=== PATIENT | male | born 1970 | race Caucasian/White ===

== ENCOUNTER 2021-01-01 01:29 | Outpatient (CLI) | payer BC | END 2021-01-01 01:30 | disposition critical access hospital (66) | LOC: EMS 01:29 | DX: R00.2 Palpitations (principal); R06.02 Shortness of breath; R07.9 Chest pain, unspecified | CPT/HCPCS: A0425; A0427 ==

== ENCOUNTER 2021-01-01 02:07 | Emergency (ER) | payer BC ==
--- NOTE | 2021-01-01 02:36 | ED Physician Documentation ---
PD HPI CHEST PAIN - Stated complaint Stated Complaint: CP/SOA - Chief complaint Chief Complaint: Cardiac - History obtained from History obtained from: Patient - History of Present Illness Timing - onset: Enter time (0100), Today Timing - onset during: Rest Timing - duration: Minutes (15) Timing - details: Abrupt onset, Now resolved Quality: Pressure, Tightness Location: Left chest Radiation: Left upper extremity Improved by: Other (time) Associated symptoms: Shortness of air, Nausea, Feeling faint / dizzy. No: Diaphoresis, Vomiting, General Weakness, Palpitations, Cough Similar symptoms before: No diagnosis Recently seen: Not recently seen - Additional information Additional information: Previously well 50-year-old male with a family history of coronary disease has been in his usual state of health and this evening while in bed he began to experience some pressure in his left upper chest close to his shoulder and this radiated down into his arm. He relates a throbbing-like sensation associated with this which is having a very difficult time describing. This lasted about 15 minutes left him with a little bit of queasiness and a feeling of near syncope. He told his and she called 911. In route the patient was administered nitroglycerin he arrives without symptoms with the exception of some mild pressure at the shoulder. He reports feeling out of shape over the past 2 to 3 months. Nothing more specific I did ask him about the metric of walking his dog and being short of breath walking up a hill and he and his both stated this does not seem to be anything progressive or significant. Review of Systems Constitutional: denies: Fever Eyes: denies: Decreased vision Ears: denies: Ear pain Nose: denies: Congestion Throat: denies: Sore throat Cardiac: reports: Chest pain / pressure. denies: Palpitations, Pedal edema, Calf pain Respiratory: reports: Dyspnea. denies: Cough, Wheezing GI: reports: Nausea. denies: Abdominal Pain, Vomiting, Constipation, Diarrhea : denies: Dysuria, Frequency Skin: denies: Rash Musculoskeletal: denies: Neck pain, Back pain, Extremity pain Neurologic: denies: Generalized weakness, Focal weakness, Numbness PD PAST MEDICAL HISTORY - Past Medical History Past Medical History: Yes Cardiovascular: Hypertension Respiratory: None Neuro: None Endocrine/Autoimmune: None GI: None : None HEENT: None Psych: None Musculoskeletal: None Derm: None - Past Surgical History Past Surgical History: No - Present Medications Home Medications: Ambulatory Orders Medication Instructions Recorded Confirmed No Known Home Medications 01/01/21 01/01/21 - Allergies Allergies/Adverse Reactions: Allergies Allergy/AdvReac Type Severity Reaction Status Date / Time No Known Drug Allergies Allergy Verified 01/01/21 02:20 - Social History Does the pt smoke?: No Smoking Status: Never smoker Does the pt drink ETOH?: Yes Does the pt have substance abuse?: No - Immunizations Immunizations are current?: Yes - POLST Patient has POLST: No PD ED PE NORMAL - Vitals Vital signs reviewed: Yes (normal ) - General General: Alert and oriented X 3, No acute distress, Well developed/nourished - HEENT HEENT: Atraumatic, PERRL, EOMI - Neck Neck: Supple, no meningeal sign, No bony TTP - Cardiac Cardiac: RRR, No murmur, Other (no chest wall tenderness ) - Respiratory Respiratory: No respiratory distress, Clear bilaterally - Abdomen Abdomen: Soft, Non tender - Back Back: No CVA TTP, No spinal TTP - Derm Derm: Normal color, Warm and dry, No rash - Extremities Extremities: No deformity, No edema - Neuro Neuro: Alert and oriented X 3, dexigraph operator 2-12 intact, No motor deficit, No sensory deficit, Normal speech Eye Opening: Spontaneous Motor: Obeys Commands Verbal: Oriented GCS Score: 15 - Psych Psych: Normal mood, Normal affect Results - Vitals Vitals: Vital Signs - 24 hr 01/01/21 01/01/21 01/01/21 02:16 02:23 02:37 Temperature 36.3 C L Heart Rate 81 65 61 Respiratory 16 16 16 Rate Blood Pressure 121/78 134/79 H O2 Saturation 100 100 99 01/01/21 01/01/21 01/01/21 03:33 03:35 03:54 Temperature Heart Rate 63 Respiratory 16 15 16 Rate Blood Pressure 117/69 O2 Saturation 100 01/01/21 01/01/21 01/01/21 03:58 03:59 04:35 Temperature Heart Rate 59 L 55 L Respiratory 14 14 Rate Blood Pressure 114/74 O2 Saturation 99 98 01/01/21 01/01/21 04:57 05:47 Temperature Heart Rate 70 Respiratory 16 15 Rate Blood Pressure 107/77 O2 Saturation 100 Oxygen O2 Source Room air - EKG (time done) 0209 Rate: Rate (enter#) (63) Rhythm: NSR Intervals: Normal SC, Wide QRS, RBBB (atypical ) Ischemia: ST elevation c/w repol (subtle in lead V2,3 1-2mV) 0440 Rate: Rate (enter#) (60) Rhythm: NSR Intervals: RBBB (incomplete) Ischemia: ST elevation c/w repol Compare to prior EKG: Unchanged from prior EKG (SPT at 02:09 no changes ) Computer interpretation: Agree with computer - Labs Labs: Laboratory Tests 01/01/21 01/01/21 01/01/21 02:55 02:55 02:55 WBC 6.7 RBC 4.49 L Hgb 13.5 L Hct 41.0 L MCV 91.3 MCH 30.1 MCHC 32.9 RDW 12.6 Plt Count 135 MPV 11.5 H Neut # (Auto) 3.9 Lymph # (Auto) 1.9 [place] # (Auto) 0.4 Eos # (Auto) 0.4 Baso # (Auto) 0.0 Absolute Nucleated RBC 0.00 Nucleated RBC % 0.0 Sodium 138 Potassium 4.1 Chloride 102 Carbon Dioxide 28 Anion Gap 8.0 BUN 15 Creatinine 1.1 Estimated GFR (MDRD) 71 L Glucose 118 H Calcium 8.4 L Total Bilirubin 0.7 AST 29 ALT 43 Alkaline Phosphatase 41 L Troponin I High Sens 2.8 Total Protein 6.3 L Albumin 4.1 Globulin 2.2 Albumin/Globulin Ratio 1.9 Lipase 32 01/01/21 04:55 WBC RBC Hgb Hct MCV MCH MCHC RDW Plt Count MPV Neut # (Auto) Lymph # (Auto) [place] # (Auto) Eos # (Auto) Baso # (Auto) Absolute Nucleated RBC Nucleated RBC % Sodium Potassium Chloride Carbon Dioxide Anion Gap BUN Creatinine Estimated GFR (MDRD) Glucose Calcium Total Bilirubin AST ALT Alkaline Phosphatase Troponin I High Sens 3.0 Total Protein Albumin Globulin Albumin/Globulin Ratio Lipase - Rads (name of study) chest Radiology: Prelim report reviewed (Impression: No acute findings) Procedures - IVC sono (time) 0230 Bedside IVC sono: IVC measures (cm) (0.99), IVC collapsed c insp (cm) (complete), Dehydration (est 1-2 liter deficit) PD MEDICAL DECISION MAKING - ED course Complexity details: reviewed results, re-evaluated patient, considered differential, d/w patient, d/w family ED course: 50-year-old male with a episode of left chest pain radiating to his left arm is pain-free on arrival to the emergency department and has an electrocardiogram concerning for some minimal ST elevation in V2 and 3 not enough to call STEMI. Laboratory studies are obtained chest x-ray is obtained he is found to be dehydrated on interrogation the inferior vena cava and he is administered saline. Feels normal at 330 am and a second trop and EKG are planned for 455. EKG is unchanged second trop unchanged and he is diagnosed with atypical chest p ain and referred to [facility] [place] . Departure - Departure Disposition: 01 Home, Self Care Clinical Impression: Atypical chest pain Condition: Stable Instructions: ED Chest Pain Atypical Unkn Cause Follow-Up: [facility] [Provider Group] Discharge Date/Time: 01/01/21 05:57
[2021-01-01] MEDS ORDERED: SODIUM CHLORIDE 0.9% 1,000 ML IV STA (03:01)
[2021-01-01 03:06] LABS: BASOPHILS % (AUTO) 0.6 %; EOSINOPHILS # (AUTO) 0.4 10^3/uL (0.0-0.7); HGB - HEMOGLOBIN 13.5 g/dL (14.0-18.0); LYMPHOCYTES # (AUTO) 1.9 10^3/uL (1.5-3.5); LYMPHOCYTES % (AUTO) 29.1 %; MEAN CORPUSCULAR HEMOGLOBIN 30.1 pg (27.0-31.0); MEAN CORPUSCULAR HGB CONC 32.9 g/dL (32.0-36.0); MEAN CORPUSCULAR VOLUME 91.3 fL (80.0-94.0); MEAN PLATELET VOLUME 11.5 fL (7.4-11.4); MONOCYTES # (AUTO) 0.4 10^3/uL (0.0-1.0); MONOCYTES % (AUTO) 6.1 %; NEUTROPHILS # (AUTO) 3.9 10^3/uL (1.5-6.6); NEUTROPHILS % (AUTO) 57.8 %; PLT - PLATELET COUNT 135 10^3/uL (130-450); RED BLOOD COUNT 4.49 10^6/uL (4.70-6.10); RED CELL DISTRIBUTION WIDTH 12.6 % (12.0-15.0); WHITE BLOOD COUNT 6.7 x10^3/uL (4.8-10.8)
[2021-01-01 03:13] LABS: ALBUMIN 4.1 g/dL (3.2-5.5); ALBUMIN/GLOBULIN RATIO 1.9 (1.0-2.2); BILIRUBIN,TOTAL 0.7 mg/dL (0.2-1.0); CALCIUM 8.4 mg/dL (8.5-10.3); CREATININE 1.1 mg/dL (0.6-1.2); POTASSIUM 4.1 mmol/L (3.5-5.0); TOTAL PROTEIN 6.3 g/dL (6.7-8.2)
[2021-01-01 04:58] VITALS: BP 107/77
--- NOTE | 2021-01-01 08:29 | XRAY Report ---
PROCEDURE: Chest 1 View X-Ray INDICATIONS: chest pain TECHNIQUE: One view of the chest was acquired. COMPARISON: None FINDINGS: Surgical changes and devices: None. Lungs and pleura: No pleural effusions or pneumothorax. Lungs are clear. Mediastinum: Mediastinal contours appear normal. Heart size is normal. Bones and chest wall: No suspicious bony lesions. Overlying soft tissues appear unremarkable. IMPRESSION: Normal for age, source of current symptoms is not seen. Reviewed by: Ben Gerber MD on 01/01/2021 8:27 AM PDT Approved by: Ben Gerber MD on 01/01/2021 8:27 AM PDT Station ID: [id number]
== END 2021-01-01 05:57 | disposition home or self-care (01) ==
LOC: ED 02:07
DX: R07.89 Other chest pain (principal); R94.31 Abnormal electrocardiogram [ECG] [EKG]; I45.10 Unspecified right bundle-branch block; E86.0 Dehydration; I10 Essential (primary) hypertension; Z82.49 Family history of ischemic heart disease and other diseases of the circulatory system
CPT/HCPCS: 36415; 80053; 83690; 84484; 85025; 93005; 96360; 99284

== ENCOUNTER 2021-07-30 21:48 | Emergency (ER) | payer BC ==
[2021-07-30 22:13] VITALS: BP 136/78
--- NOTE | 2021-07-30 23:15 | ED Physician Documentation ---
PD HPI OPHTHO - Stated complaint Stated Complaint: GORILLA GLUE/LT EYE - Chief complaint Chief Complaint: Heent - History obtained from History obtained from: Patient - History of Present Illness Timing - onset: Today (he was using gorilla glue and had some on his finger, and inadvertently touched his left eye. Has feeling of discomfort with blinking. Some redness and swelling lateral scleral area.) Timing - duration: Days (earlier today) Timing - details: Abrupt onset, Still present Location: Left (lateral eye) Quality / character: Aching (discomfort with blinking) Associated symptoms: Redness, FB sensation. No: Loss of vision Contributing factors: Other (touched eye with glue on finger). No: Wears contacts Similar symptoms before: Has not had sx before Recently seen: Not recently seen Review of Systems Eyes: reports: Irritation. denies: Loss of vision, Decreased vision, Photophobia PD PAST MEDICAL HISTORY - Past Medical History Cardiovascular: Hypertension Respiratory: None Neuro: None Endocrine/Autoimmune: None GI: None : None HEENT: None Psych: None Musculoskeletal: None Derm: None - Past Surgical History Past Surgical History: No - Present Medications Home Medications: Ambulatory Orders Medication Instructions Recorded Confirmed Erythromycin Base [Erythromycin 1 applic OP TID 4 Days #3.5 gm 07/30/21 Ophthalmic Ointment] Flurbiprofen Sodium 2 drops LEFTEYE TID 4 Days #1 07/30/21 bottle - Allergies Allergies/Adverse Reactions: Allergies Allergy/AdvReac Type Severity Reaction Status Date / Time No Known Drug Allergies Allergy Verified 07/30/21 22:13 - Social History Does the pt smoke?: No Smoking Status: Never smoker Does the pt drink ETOH?: Yes Does the pt have substance abuse?: No - Immunizations Immunizations are current?: Yes - POLST Patient has POLST: No PD ED PE NORMAL - Vitals Vital signs reviewed: Yes - General General: Alert and oriented X 3, No acute distress, Well developed/nourished - HEENT HEENT: PERRL, EOMI PD ED PE EXPANDED - Eyes Eyes: Left eye, Fluorescein uptake (superficial in about 3-4 mm sized area lower lateral. No FB noted. Some hyperemia and conjunctival edema in area. ). No: Corneal ulcer Results - Vitals Vitals: Vital Signs - 24 hr 07/30/21 07/31/21 22:07 00:03 Temperature 36.4 C L Heart Rate 72 70 Respiratory 14 12 Rate Blood Pressure 136/78 H O2 Saturation 98 98 Oxygen O2 Source Room air PD MEDICAL DECISION MAKING - ED course Complexity details: considered differential, d/w patient Departure - Departure Disposition: 01 Home, Self Care Clinical Impression: Acute chemical conjunctivitis Qualifiers: Laterality: left Qualified Code(s): H10.212 - Acute toxic conjunctivitis, left eye Condition: Stable Record reviewed to determine appropriate education?: Yes Prescriptions: Erythromycin Base [Erythromycin Ophthalmic Ointment] 1 applic OP TID 4 Days #3.5 gm Flurbiprofen Sodium 2 drops LEFTEYE TID 4 Days #1 bottle Comments: There is superficial dye uptake in the area suggesting a mild corneal abrasion from the chemical. There is also local swelling and redness. The abrasion part should heal itself over time. I would suggest some anti-inflammatory eyedrops 3 times a day and an antibiotic eye ointment 3 times a day as well. This would be to help coat the surface of the eye for less irritation and also in case there is any early infection. I transmitted the prescriptions to [facility] in [place]. Recheck if not improved well over the next 2 to 3 days and return if worsening. Discharge Date/Time: 07/31/21 00:04
[2021-07-30] MEDS ORDERED: ERYTHROMYCIN OPHTH OINT 1 GM TUBE LEFTEYE STA (23:30)
[2021-07-30] MEDS ORDERED: IBUPROFEN 600 MG TABLET PO STA (23:30)
== END 2021-07-31 00:04 | disposition home or self-care (01) ==
LOC: ED 21:48
DX: T52.8X1A Toxic effect of other organic solvents, accidental (unintentional), initial encounter (principal); H10.212 Acute toxic conjunctivitis, left eye; I10 Essential (primary) hypertension
CPT/HCPCS: 99282; A9270; J3490